=== PATIENT | male | born 1985 | race Caucasian/White ===

== ENCOUNTER 2017-10-14 05:59 | Day surgery (SDC) | payer OTHER ==
[~2017-10-14] VITALS: Ht 180.3 cm; Wt 108.9 kg
[2017-10-14 06:20] VITALS: BP 147/98
[2017-10-14 11:13] VITALS: BP 148/98
== END 2017-10-14 11:10 | disposition home or self-care (01) ==
LOC: DS 05:59 → OR 07:30 → DS 07:30
PROVIDERS: Neuromusculoskeletal Medicine, Sports Medicine
PROC: 0S9C3ZX Drainage of Right Knee Joint, Percutaneous Approach, Diagnostic (ICD-10-PCS; 2017-10-14)
PROC: 0SBC4ZZ Excision of Right Knee Joint, Percutaneous Endoscopic Approach (ICD-10-PCS; principal; 2017-10-14 07:30)
DX: S83.231A Complex tear of medial meniscus, current injury, right knee, initial encounter (principal); I10 Essential (primary) hypertension; X58.XXXA Exposure to other specified factors, initial encounter; Y92.9 Unspecified place or not applicable
CPT/HCPCS: J0690; J2250; J2704; J3010; J3490; J7030; J7120